=== PATIENT | female | born 1985 | race Asian ===

== ENCOUNTER 2017-07-25 00:20 | Inpatient (IN) | payer SELFPAY ==
[~2017-07-25] VITALS: Ht 160 cm; Wt 72.6 kg
[2017-07-25] MEDS ORDERED: SYN.075 PO (00:44)
[2017-07-25] MEDS ORDERED: PROMETHAZINE 25 MG/ML VIAL IVP PRN (01:45)
[2017-07-25] MEDS ORDERED: IBUPROFEN 800 MG TAB PO PRN ×2 (01:45→20:30)
[2017-07-25] MEDS ORDERED: NALBUPHINE 10 MG/ML AMP IVP PRN (01:45)
[2017-07-25] MEDS ORDERED: OXYTOCIN 20 UNITS in LACTATED RINGERS 1,000 ML IV SCH (01:45)
[2017-07-25] MEDS ORDERED: METHYLERGONOVINE 0.2 MG/ML AMP IM PRN ×3 (01:45→22:10)
[2017-07-25] MEDS ORDERED: CARBOPROST 250 MCG/ML AMP IM PRN (01:45)
[2017-07-25 01:57] LABS: BASOPHILS # (AUTO) 0.1 K/uL (0.00-0.22); BASOPHILS % (AUTO) 1.2 % (0.0-2.0); EOSINOPHILS # (AUTO) 0.1 K/uL (0-0.4); EOSINOPHILS % (AUTO) 0.8 % (0.0-4.0); HEMATOCRIT 35.1 % (36-48); LYMPHOCYTES # (AUTO) 1.7 K/uL (2.5-16.5); LYMPHOCYTES % (AUTO) 19.5 % (20.5-51.1); MEAN CORPUSCULAR HEMOGLOBIN 33 pg (27-31); MEAN CORPUSCULAR HGB CONC 34 g/dL (33-37); MEAN CORPUSCULAR VOLUME 95 fL (80-94); MONOCYTES # (AUTO) 0.8 K/uL (0.8-1.0); MONOCYTES % (AUTO) 9.1 % (1.7-9.3); NEUTROPHILS # (AUTO) 6.2 K/uL (1.8-7.7); NEUTROPHILS % (AUTO) 69.4 % (42.2-75.2); PLATELET COUNT (AUTO) 170 K/uL (140-450); WHITE BLOOD COUNT (AUTO) 8.9 K/uL (4.8-10.8)
[2017-07-25 02:03] LABS: APPEARANCE,URINE CLEAR (CLEAR); BILIRUBIN,URINE NEGATIVE (NEGATIVE); BLOOD, URINE NEGATIVE (NEGATIVE); COLOR,URINE YELLOW (YELLOW); LEUKOCYTE ESTERASE ,URINE TRACE (NEGATIVE); NITRITE, URINE NEGATIVE (NEGATIVE); PH,URINE 6.5 (5.0-9.0); UGLUCOSE NEGATIVE (NEGATIVE)
[2017-07-25 02:05] LABS: CARBON DIOXIDE 23.7 mmol/L (21-32); CREATININE 0.6 mg/dL (0.6-1.3); POTASSIUM 3.7 mmol/L (3.5-5.1)
[2017-07-25 02:11] LABS: ALBUMIN 2.8 g/dL (3.4-5.0); TOTAL BILIRUBIN 0.2 mg/dL (0.0-1.0)
[2017-07-25 02:18] LABS: RBC,URINE 0-5 (RARE) /HPF (0-5)
[2017-07-25] MEDS ORDERED: MISOPROSTOL 25 MCG TAB ONE ×3 (02:41→11:46)
[2017-07-25 03:31] VITALS: BP 103/68
--- NOTE | 2017-07-25 10:02 | NUR ---
PATIENT HAS BEEN SCREENED AND CATEGORIZED LOW NUTRITION RISK. PATIENT WILL BE SEEN WITHIN 7 DAYS OF ADMISSION. 07/31/[address]
[2017-07-25] MEDS: LACTATED RINGERS 1,000 ML IV SCH ×2 (10:14→15:22)
[2017-07-25] MEDS ORDERED: ROPIVACAINE 0.2%/NS PREMIX 250 ML EPI ONE (14:43)
[2017-07-25] MEDS ORDERED: AMPICILLIN 2,000 MG in NACL 0.9% 100 ML IV SCH (15:00)
[2017-07-25] MEDS ORDERED: ROPIVACAINE 0.2%/NS PREMIX 250 ML EPI SCH (15:10)
[2017-07-25] MEDS ORDERED: AMPICILLIN 2,000 MG VIAL ONE ×2 (16:02→20:20)
[2017-07-25] MEDS ORDERED: OXYTOCIN 20 UNITS/LR PREMIX 1,000 ML IV ONE (17:18)
[2017-07-25] MEDS ORDERED: MISOPROSTOL 25 MCG TAB VG PRN (20:00)
[2017-07-25] MEDS ORDERED: OXYTOCIN 10 UNITS/ML VIAL IM ONE (20:00)
[2017-07-25] MEDS ORDERED: OXYTOCIN 10 UNITS/ML VIAL ONE (20:28)
[2017-07-25] MEDS ORDERED: MEASLES, MUMPS, AND RUBELLA 1 VIAL SQVAC PRN ×2 (20:30→22:10)
[2017-07-25] MEDS ORDERED: BENZOCAINE/MENTHOL 20%-0.5% 60 GM CAN TP PRN ×2 (20:30→22:10)
[2017-07-25] MEDS ORDERED: oxyCODONE/APAP 5/325 MG 1 TAB TAB PO PRN ×2 (20:30→22:10)
[2017-07-25] MEDS ORDERED: HYDROcodone/APAP 5/325 MG 1 TAB TAB PO PRN ×2 (20:30→22:10)
[2017-07-25] MEDS ORDERED: OXYTOCIN 10 UNITS/ML VIAL IM PRN ×2 (20:30→22:10)
[2017-07-25] MEDS ORDERED: TEMAZEPAM 15 MG CAP PO PRN (20:30)
[2017-07-25] MEDS ORDERED: DOCUSATE SOD/SENNA 50/8.6 MG 1 TAB PO SCH (21:00)
[2017-07-25] MEDS ORDERED: METHYLERGONOVINE 0.2 MG TAB PO PRN (22:10)
[2017-07-26] MEDS: AMPICILLIN 1,000 MG in NACL 0.9% 50 ML IV SCH ×2 (00:42→04:44)
[2017-07-26] MEDS ORDERED: AMPICILLIN 1,000 MG VIAL ONE ×2 (00:43→04:42)
[2017-07-26 06:23] LABS: HEMATOCRIT 33.2 % (36-48); HEMOGLOBIN 11.3 g/dL (12.0-16.0)
[2017-07-26 17:10] LABS: RAPID PLASMA REAGIN NON-REACTIVE (Non Reactiv)
[2017-07-26] MEDS ORDERED: DOCUSATE SOD/SENNA 50/8.6 MG 1 TAB PO SCH (21:00)
[2017-07-26] MEDS ORDERED: BISACODYL 5 MG TABEC PO SCH (21:00)
== END 2017-07-27 13:55 | disposition home or self-care (01) | DRG 775 ==
LOC: MLD 00:20 → MFCC 23:50
PROVIDERS: ADMIT Obstetrics & Gynecology; ATTEND Obstetrics & Gynecology
PROC: 10E0XZZ Delivery of Products of Conception, External Approach (ICD-10-PCS; principal; 2017-07-25)
PROC: 10907ZC Drainage of Amniotic Fluid, Therapeutic from Products of Conception, Via Natural or Artificial Opening (ICD-10-PCS; 2017-07-25)
PROC: 3E0S3BZ Introduction of Anesthetic Agent into Epidural Space, Percutaneous Approach (ICD-10-PCS; 2017-07-25)
PROC: 00HU33Z Insertion of Infusion Device into Spinal Canal, Percutaneous Approach (ICD-10-PCS; 2017-07-25)
PROC: 3E0P3VZ Introduction of Hormone into Female Reproductive, Percutaneous Approach (ICD-10-PCS; 2017-07-25)
DX: O69.81X0 Labor and delivery complicated by cord around neck, without compression, not applicable or unspecified (principal); Z28.21 Immunization not carried out because of patient refusal; Z37.0 Single live birth; Z3A.39 39 weeks gestation of pregnancy
CPT/HCPCS: 36415; 51702; 59200; 59409; 80053; 81001; 85018; 85025; 86592; 86886; 86900; 86901; 87086; C1758; J0290; J2590; J2795; J7120